=== PATIENT | female | born 2005 | race Caucasian/White ===

== ENCOUNTER 2024-07-07 04:17 | Inpatient (IN) | payer OTHER ==
[2024-07-07] MEDS ORDERED: CARBOPROST TROMETHAMINE 250 MCG/ML 1 ML AMP IM PRN (04:33)
[2024-07-07] MEDS ORDERED: miSOPROStoL 200 MCG TAB PO PRN (04:33)
[2024-07-07] MEDS ORDERED: LIDOCAINE 0.5% (PF) 5 MG/ML (50 ML SDV) SQ PRN (04:33)
[2024-07-07] MEDS ORDERED: TERBUTALINE 1 MG/ML VIAL SQ PRN (04:33)
[2024-07-07] MEDS ORDERED: miSOPROStoL 200 MCG TAB RECTAL PRN (04:33)
[2024-07-07 04:46] VITALS: RESP 16
[2024-07-07] MEDS: LACTATED RINGERS 1,000 ML IV SCH (04:57)
[2024-07-07 05:11] LABS: Basophils % (A) 0 %; Eosinophils # (A) 0.1 k/uL (0-0.7); Eosinophils % (A) 1 %; HCT 32.1 % (34.0-46.0); HGB 10.6 gm/dL (11.4-16.0); Lymphocytes # (A) 1.9 k/uL (1.0-4.8); Lymphocytes % (A) 22 %; MCH 28.7 pg (25.0-35.0); MCHC 33.1 g/dL (31.0-37.0); MCV 86.7 fL (80.0-100.0); Mean Platelet Volume 10.5; Monocytes # (A) 0.5 k/uL (0-1.0); Monocytes % (A) 5 %; Neutrophils # (A) 5.7 k/uL (1.3-7.7); Neutrophils % (A) 69 %; Platelet Count 134 k/uL (150-450); RDW 15.7 % (11.5-15.5); WBC 8.3 k/uL (4.0-11.0)
[2024-07-07] MEDS: OXYTOCIN 30 UNITS/500 ML NS 30 UNIT in SALINE 1 500ML.BAG IV SCH (06:40)
--- NOTE | 2024-07-07 07:58 | P.HPOB ---
History of Present Illness H&P Date: 07/07/24 Chief Complaint: Elective induction Ms. Lowery is a 18 year old at 40 weeks and 1 day gestation with EDC of 07/06/2024 by 8 week US who presents for induction of labor for post-dates gestation. Her has been complicated by a chlamydia infection for which she was treated and test of cure was negative (06/17/24). The fetus is estimated to be in the 54%ile based on a 32 week growth US. work-up: blood type O positive, antibody screen negative, rubella immune VDRL non-reactive, HBsAg negative, HIV negative, HCV Ab non-reactive, gonorrhea negative, 1 hour GTT wnl, GBS negative. Past Medical History Past Medical History: Asthma Additional Past Medical History / Comment(s): vanwillibrants type 2 (bleeding disorder), asthma at childhood History of Any Multi-Drug Resistant Organisms: None Reported Past Surgical History: Adenoidectomy, Ear Surgery, Tonsillectomy Additional Past Surgical History / Comment(s): T&A and tubes in childhood Past Anesthesia/Blood Transfusion Reactions: No Reported Reaction Past Psychological History: No Psychological Hx Reported Smoking Status: Never smoker Past Alcohol Use History: None Reported Past Drug Use History: Marijuana Additional Drug Use History / Comment(s): Stopped a few months ago Medications and Allergies Allergies Allergy/AdvReac Type Severity Reaction Status Date / Time Penicillins AdvReac Unknown Verified 07/02/24 21:39 Exam Vital Signs Temp Pulse Resp BP Pulse Ox 07/07/24 04:30 97.0 F L 95 16 128/73 99 Intake and Output 07/06/24 07/07/24 07/07/24 22:59 06:59 14:59 Other: # Voids 1 Weight 63.503 kg Focused physical exam is performed. This is a healthy-appearing in no apparent distress. Breathing is non-labored. Abdomen is gravid and non-tender. Cervical exam is 3/70/-3. AROM is undertaken with thin meconium noted in the amniotic fluid. Extremities non-tender and non-edematous. heart tones are Category I and tocometer is graphing contractions every 2-4 minutes. Results Result Diagrams: 07/07/24 04:50 Abnormal Lab Results - Last 24 Hours (Table) 07/07/24 Range/Units 04:50 RBC 3.70 L (3.80-5.40) m/uL Hgb 10.6 L (11.4-16.0) gm/dL Hct 32.1 L (34.0-46.0) % RDW 15.7 H (11.5-15.5) % Plt Count 134 L (150-450) k/uL Assessment and Plan Assessment: 18 year at 40 weeks and 1 day presenting for induction of labor for post- dates Plan: Admit, clear liquid diet, pitocin per protocol, epidural prn, continuous EFM and tocometer, anticipate vaginal delivery
[2024-07-07 08:22] LABS: Amphetamine Screen,Urine Not Detected (NotDetected); Barbiturate Screen,Urine Not Detected (NotDetected); Benzodiazepines Screen,Urine Not Detected (NotDetected); Cocaine Screen,Urine Not Detected (NotDetected); Methadone Screen, Urine Not Detected (NotDetected); Opiate Screen,Urine Not Detected (NotDetected); Oxycodone Screen, Urine Not Detected (NotDetected); Phencyclidine Screen,Urine Not Detected (NotDetected); Tricyclic Antidepressant,Urine Not Detected (NotDetected); Urn Cannabinoid Scrn Not Detected (NotDetected)
[2024-07-07] MEDS: NALBUPHINE 10 MG/ML (10 ML MDV) IV PRN (09:16)
[2024-07-07] MEDS: TRANEXAMIC 1,000 MG/100ML-NACL 1,000 MG in EMPTY BAG 1 BAG IV PRN (14:45)
[2024-07-07] MEDS: OXYTOCIN 10 UNIT/ML 1 ML VIAL IM PRN (14:57)
[2024-07-07] MEDS: METHYLERGONOVINE 0.2 MG/ML 1 ML AMP IM PRN (15:01)
[2024-07-07] MEDS ORDERED: LANOLIN CREAM 1 GM TUBE TOPICAL PRN (15:15)
[2024-07-07] MEDS ORDERED: HYDROCORTISONE 2.5% RECTAL CREAM 30 GM TUBE RECTAL PRN (15:15)
[2024-07-07] MEDS ORDERED: diphenhydrAMINE 50 MG/ML 1 ML VIAL IVP PRN ×2 (15:15)
[2024-07-07] MEDS ORDERED: BENZOCAINE/MENTHOL SPRAY 1 GM/SPRAY AEROSOL TOPICAL PRN (15:15)
[2024-07-07] MEDS ORDERED: diphenhydrAMINE 25 MG CAP PO PRN (15:15)
[2024-07-07] MEDS ORDERED: diphenhydrAMINE 50 MG CAP PO PRN (15:15)
[2024-07-07] MEDS ORDERED: SIMETHICONE 80 MG CHEWABLE PO PRN (15:15)
[2024-07-07] MEDS ORDERED: ZOLPIDEM 5 MG TAB PO PRN (15:15)
--- NOTE | 2024-07-07 15:15 | P.PROBDLV ---
Vaginal Delivery Note - . Vaginal Delivery Note: DATE OF SERVICE: 07/07/2024 PROCEDURE: Vacuum Assisted Vaginal Delivery ATTENDING: Dr. Henrietta Andrade MD ESTIMATED BLOOD LOSS: 700 mL FINDINGS: VFI, Apgars 9/9. Weight 7 pounds. PROCEDURE: Ms. Lowery is a 18 year old at 40 weeks and 1 day gestation presenting to labor and delivery for induction of labor. The was thought to be uncomplicated, however the patient today revealed that she does have Von Willebrand's Type 2. Pitocin was titrated per protocol. AROM was undertaken at 751 revealing clear amniotic fluid. The patient was completely dilated at 1440. A gram of TXA was given empirically to manage bleeding given the patient's history of VW Type 2. She pushed effectively with Category II heart tones. The heart rate then dropped to the 60s and the decision was made to use an outlet vacuum to assist in delivery. The vacuum was applied to the scalp ensuring no maternal tissue was underneath the suction cup. A viable female infant was delivered at 1452 without any pop offs. The infant was placed on the maternal abdomen and bulb suctioned. The was noted to be spontaneously crying. Cord was clamped and cut after a 30-second delay. The was handed off to the pediatric team. Placenta was delivered manually aft er an umbilical cord avulsion at 1457. Oxytocin was started to facilitate uterine tone. Given brisk bleeding on fundal massage, IM Methergine was administered. Uterine fundus was found to be firm and below the umbilicus upon fundal massage. Thorough examination of the cervix, vagina, periurethral area, and perineum revealed bilateral periurethral abrasions that were hemostatic and did not require repair. The patient is stable and allowed to begin the bonding process.
[2024-07-07] MEDS: ACETAMINOPHEN TAB 500 MG TAB PO SCH (20:00)
[2024-07-07] MEDS: SENNOSIDES-DOCUSATE SODIUM 1 EACH TAB PO SCH (22:42)
[2024-07-07] MEDS: TRANEXAMIC 1,000 MG/100ML-NACL 1,000 MG in EMPTY BAG 1 BAG IV SCH (23:17)
[2024-07-08] MEDS: IBUPROFEN 800 MG TAB PO SCH (04:23)
[2024-07-08 07:03] LABS: Basophils % (A) 0 %; Eosinophils % (A) 0 %; HGB 9.2 gm/dL (11.4-16.0); Hypochromasia Slight; Lymphocytes # (A) 1.3 k/uL (1.0-4.8); Lymphocytes % (A) 13 %; MCH 28.6 pg (25.0-35.0); MCHC 32.8 g/dL (31.0-37.0); MCV 87.1 fL (80.0-100.0); Mean Platelet Volume 9.7; Monocytes # (A) 0.5 k/uL (0-1.0); Monocytes % (A) 5 %; Neutrophils # (A) 8.1 k/uL (1.3-7.7); Neutrophils % (A) 81 %; Platelet Count 130 k/uL (150-450); RBC 3.21 m/uL (3.80-5.40); RDW 15.7 % (11.5-15.5)
--- NOTE | 2024-07-08 08:28 | P.PNOBGVD ---
Subjective - Subjective Principal diagnosis: s/p vaginal delivery Interval history: The patient is doing well this morning and had no acute events overnight. She has no complaints this morning. She reports minimal lochia, passing flatus, voiding without difficulty, ambulating, and eating/drinking without nausea or vomiting. She is her without difficulty. She denies chest pain, shortness of breathing, fevers, or chills overnight. She denies pain or swelling in the legs. Patient reports: Reports appetite normal, Reports voiding normally, Reports pain well controlled, Reports ambulating normally : doing well, nursing well Objective - Latest Vital Signs Latest vital signs: Vital Signs Temp Pulse Resp BP 07/08/24 00:00 98.6 F 91 16 110/69 07/07/24 20:00 98.0 F 102 H 16 121/71 07/07/24 19:05 102 H 07/07/24 17:05 97.2 F L 90 16 122/62 07/07/24 16:50 86 16 120/77 07/07/24 16:32 79 16 117/79 07/07/24 16:20 97.1 F L 84 16 121/81 07/07/24 16:05 97.7 F 96 16 116/83 07/07/24 15:50 79 16 126/76 07/07/24 15:35 85 16 133/78 07/07/24 15:20 93 16 132/78 07/07/24 15:05 97.0 F L 110 H 16 132/77 Intake and Output 07/07/24 07/08/24 07/08/24 22:59 06:59 14:59 Intake Total 16.667 Output Total 150 Balance -133.333 Intake: Intake, IV Titration 16.667 Amount Oxytocin 30 Units/500 ml 16.667 Ns 30 unit In Saline 1 500ml.bag @ Per Protocol IV .Q0M [facility] Rx#:[id number] Output: Output, Quantitative 150 Blood Loss Other: # Voids 1 2 - Exam Extremities: Present: normal Abdomen: Present: normal appearance, soft Uterus: Present: normal, firm - Labs Labs: Abnormal Lab Results - Last 24 Hours (Table) 07/08/24 Range/Units 06:32 RBC 3.21 L (3.80-5.40) m/uL Hgb 9.2 L (11.4-16.0) gm/dL Hct 28.0 L (34.0-46.0) % RDW 15.7 H (11.5-15.5) % Plt Count 130 L (150-450) k/uL Neutrophils # 8.1 H (1.3-7.7) k/uL Assessment and Plan Assessment: 18 year old now PPD#1 s/p Plan: 1. . Patient meeting all milestones appropriately. 2. Von Willebrand's Type 2. Appreciate Heme recs. Plan for discharge home with TXA PO TID for 1 week 3. Viable female at bedside. Doing well, nursing well. Dispo: anticipate discharge home today after heme consult.
[2024-07-08 09:13] VITALS: BP 117/69; PULSE 66; TEMP 98.2
--- NOTE | 2024-07-08 11:52 | P.CONS ---
History of Present Illness - Reason for Consult Consult date: 07/08/24 History of type II von Willebrand's disease Requesting physician: Henrietta Andrade - Chief Complaint Vaginal delivery of a baby - History of Present Illness Mrs. Lowery is a pleasant 18-year-old female who delivered a healthy baby girl in the last 24 hours. Patient reported a history of type II von Willebrand's disease to Senior Software Test Engineer when she came in for delivery. Patient reports she was diagnosed [facility] [place] when when she was about 4 years old. She reports that she had bad epistaxis as a child. She had tonsils and adenoids out and thinks there was complications postoperative, no other surgeries or porcedures, this is her 1st child. Currently, patient is denying any excessive bleeding, no excessive bleeding is reported by nursing. Review of Systems Focused review of systems is negative except as stated in HPI Past Medical History Past Medical History: Asthma Additional Past Medical History / Comment(s): vanwillibrants type 2 (bleeding disorder), asthma at childhood History of Any Multi-Drug Resistant Organisms: None Reported Past Surgical History: Adenoidectomy, Ear Surgery, Tonsillectomy Additional Past Surgical History / Comment(s): T&A and tubes in childhood Past Anesthesia/Blood Transfusion Reactions: No Reported Reaction Past Psychological History: No Psychological Hx Reported Smoking Status: Never smoker Past Alcohol Use History: None Reported Past Drug Use History: Marijuana Additional Drug Use History / Comment(s): Stopped a few months ago Medications and Allergies Allergies Allergy/AdvReac Type Severity Reaction Status Date / Time Penicillins AdvReac Unknown Verified 07/02/24 21:39 Physical Exam Vitals: Vital Signs Temp Pulse Resp BP 07/08/24 09:12 98.2 F 66 16 117/69 07/08/24 00:00 98.6 F 91 16 110/69 07/07/24 20:00 98.0 F 102 H 16 121/71 07/07/24 19:05 102 H 07/07/24 17:05 97.2 F L 90 16 122/62 07/07/24 16:50 86 16 120/77 07/07/24 16:32 79 16 117/79 07/07/24 16:20 97.1 F L 84 16 121/81 07/07/24 16:05 97.7 F 96 16 116/83 07/07/24 15:50 79 16 126/76 07/07/24 15:35 85 16 133/78 07/07/24 15:20 93 16 132/78 07/07/24 15:05 97.0 F L 110 H 16 132/77 Intake and Output 07/07/24 07/08/24 07/08/24 22:59 06:59 14:59 Intake Total 16.667 Output Total 150 Balance -133.333 Intake: Intake, IV Titration 16.667 Amount Oxytocin 30 Units/500 ml 16.667 Ns 30 unit In Saline 1 500ml.bag @ Per Protocol IV .Q0M [facility] Rx#:[id number] Output: Output, Quantitative 150 Blood Loss Other: # Voids 1 2 1 - Constitutional General appearance: average body habitus, cooperative, no acute distress - EENT Eyes: anicteric sclerae, EOMI ENT: hearing grossly normal - Respiratory Respirations even and unlabored - Cardiovascular Skin warm and dry to touch, well-perfused leg Peripheral Edema: bilateral: None - Integumentary Integumentary: normal - Neurologic Neurologic: CNII-XII intact - Musculoskeletal Musculoskeletal: strength equal bilaterally - Psychiatric Psychiatric: A&O x's 3, appropriate affect, intact judgment & insight Results CBC & Chem 7: 07/08/24 06:32 Labs: Abnormal Lab Results - Last 24 Hours (Table) 07/08/24 Range/Units 06:32 RBC 3.21 L (3.80-5.40) m/uL Hgb 9.2 L (11.4-16.0) gm/dL Hct 28.0 L (34.0-46.0) % RDW 15.7 H (11.5-15.5) % Plt Count 130 L (150-450) k/uL Neutrophils # 8.1 H (1.3-7.7) k/uL Assessment and Plan (1) Von Willebrand disease, type 2, unspecified Current Visit: Yes Status: Chronic Priority: Medium Code(s): D68.029 - VON WILLEBRAND DISEASE, TYPE 2, UNSPECIFIED SNOMED Code(s): 599785014 Plan: Von Willebrand's disease, type II -Reading through the delivery note patient was given 1 g of TXA empirically to manage bleeding just prior to delivery. Plans for TXA 3 times daily, agree with the same -Factor VIII levels were drawn inpatient. Will look for results. -Dr. Dugan discussed with patient and at the bedside plans for follow- up and factor VIII monitoring for few weeks. They verbalized understanding. -Discussed with nursing. Ok to discharge from Hematology standpoint -Patient will be called with lab draw and appointment dates and times with the group care worker. Unclear how easy it will be to get testing results from [facility] [place] so, plans will be for retesting for von Willebrand's disease. Doctor attests: I performed a history and physical examination of this patient, developed impression and plan of care. Discussed with dictator. I agree with dictators note, documented as a scribe.
--- NOTE | 2024-07-08 15:39 | P.DS ---
Providers Date of admission: 07/07/24 04:17 Expected date of discharge: 07/08/24 Attending physician: Henrietta Andrade MD Consults: 07/07/24 10:14 Consult Physician Routine Consulting Provider: Anthony Bejarano Consult Reason/Comments: Pt has Vonwillebrand Disease Type 2 Do you want consulting provider notified?: Yes Primary care physician: Henrietta Andrade MD Hospital Course: Ms. Lowery is a 18 year old now PPD#1 s/p . Yesterday she did mention that she has Von Willebrand's type 2. She was diagnosed at age 4 after a bad nose bleed. She has seen hematology here who plans to follow up with her outpatient and agrees with plans of TXA PO TID for the next week. She did have high normal EBL at 700 mL that was mostly due to atony and improved with Methergine, Oxytocin, and TXA. Her course has been within normal limits and she denies any heavy bleeding . She is her female without difficulty. She is eating, drinking, ambulating, and voiding without difficulty. We discussed pelvic rest for 6 weeks. She is advised to call the office for any heavy bleeding, fevers, chills, worsening pain, or concerns. Otherwise she will follow up in 6 weeks for appointment. All questions are answered. Assessment: 18 year old PPD#1 s/p Patient Condition at Discharge: Good Plan - Discharge Summary New Discharge Prescriptions: New Acetaminophen Tab [Tylenol] 650 mg PO Q6H PRN #30 tab PRN Reason: Mild Pain (Scale 1 To 3) Docusate [Colace] 100 mg PO BID PRN #60 capsule PRN Reason: Constipation Tranexamic Acid [Lysteda] 650 mg PO TID 7 Days #21 tablet Ibuprofen [Motrin] 600 mg PO Q6HR PRN #30 tab PRN Reason: Mild Pain (Scale 1 To 3) Discharge Medication List Acetaminophen Tab [Tylenol] 650 mg PO Q6H PRN #30 tab 07/08/24 [Rx] Docusate [Colace] 100 mg PO BID PRN #60 capsule 07/08/24 [Rx] Ibuprofen [Motrin] 600 mg PO Q6HR PRN #30 tab 01/21/25 [Rx] Tranexamic Acid [Lysteda] 650 mg PO TID 7 Days #21 tablet 07/08/24 [Rx] Follow up Appointment(s)/Referral(s): Henrietta Andrade MD [Primary Care Provider] - 08/20/24 8:30 am Discharge Disposition: HOME SELF-CARE
== END 2024-07-08 16:13 | disposition home or self-care (01) | DRG 560 ==
LOC: 4FBP 04:17
PROVIDERS: ADMIT Obstetrics & Gynecology; ATTEND Obstetrics & Gynecology
PROC: 4A1HXCZ Monitoring of Products of Conception, Cardiac Rate, External Approach (ICD-10-PCS; principal; 2024-07-07)
PROC: 10907ZC Drainage of Amniotic Fluid, Therapeutic from Products of Conception, Via Natural or Artificial Opening (ICD-10-PCS; principal; 2024-07-07)
PROC: 3E033VJ Introduction of Other Hormone into Peripheral Vein, Percutaneous Approach (ICD-10-PCS; principal; 2024-07-07)
PROC: 10D07Z6 Extraction of Products of Conception, Vacuum, Via Natural or Artificial Opening (ICD-10-PCS; principal; 2024-07-07)
DX: O48.0 Post-term pregnancy (principal); Z37.0 Single live birth; D68.029 Von Willebrand disease, type 2, unspecified; O99.12 Other diseases of the blood and blood-forming organs and certain disorders involving the immune mechanism complicating childbirth; A74.9 Chlamydial infection, unspecified; Z3A.40 40 weeks gestation of pregnancy; O69.89X0 Labor and delivery complicated by other cord complications, not applicable or unspecified; O76 Abnormality in fetal heart rate and rhythm complicating labor and delivery
CPT/HCPCS: 80306; 85025; 85246; 86850; 86900; 86901

== ENCOUNTER 2024-12-24 22:35 | Emergency (ER) | payer OTHER ==
[2024-12-24 22:48] VITALS: RESP 18
--- NOTE | 2024-12-24 23:36 | ED ---
General Adult HPI - General Chief complaint: Skin/Abscess/Foreign Body Stated complaint: bug bite left foot Time Seen by Provider: 12/24/24 22:49 Source: patient Mode of arrival: ambulatory Limitations: no limitations - History of Present Illness Initial comments: 19-year-old female presented chief complaint of bug bite to the left ankle. Patient first noticed it on Sunday, she thought nothing of it it was just tried to keep it relatively clean. However now it appears more painful and swollen. She has no foul discharge from the area. No fever or chills. No red streaking up the leg. - Related Data Previous Rx's Medication Instructions Recorded Acetaminophen Tab [Tylenol] 650 mg PO Q6H PRN #30 tab 07/08/24 Docusate [Colace] 100 mg PO BID PRN #60 capsule 07/08/24 Ibuprofen [Motrin] 600 mg PO Q6HR PRN #30 tab 07/08/24 Tranexamic Acid [Lysteda] 650 mg PO TID 7 Days #21 tablet 07/08/24 Cephalexin [Keflex] 500 mg PO Q6HR 7 Days #28 cap 12/24/24 Sulfamethox-Tmp 800-160Mg [Bactrim 1 tab PO Q12HR 7 Days #14 tab 12/24/24 DS 800-160 mg] Allergies Allergy/AdvReac Type Severity Reaction Status Date / Time Penicillins AdvReac Unknown Verified 12/24/24 22:48 Review of Systems ROS Statement: Those systems with pertinent positive or pertinent negative responses have been documented in the HPI. ROS Other: All systems not noted in ROS Statement are negative. Past Medical History Past Medical History: Asthma Additional Past Medical History / Comment(s): vanwillibrants type 2 (bleeding disorder), asthma at childhood History of Any Multi-Drug Resistant Organisms: None Reported Past Surgical History: Adenoidectomy, Ear Surgery, Tonsillectomy Additional Past Surgical History / Comment(s): T&A and tubes in childhood Past Anesthesia/Blood Transfusion Reactions: No Reported Reaction Past Psychological History: No Psychological Hx Reported Smoking Status: Never smoker Past Alcohol Use History: None Reported Past Drug Use History: Marijuana General Exam Limitations: no limitations General appearance: alert, in no apparent distress Head exam: Present: atraumatic, normocephalic, normal inspection Eye exam: Present: normal appearance, EOMI Neck exam: Present: normal inspection. Absent: meningismus Respiratory exam: Absent: respiratory distress Cardiovascular Exam: Present: regular rate Neurological exam: Present: alert, oriented X3 Psychiatric exam: Present: normal affect, normal mood Skin exam: Present: other (There is a circular bug bite with a 1 cm diameter, mild erythema with a centralized puncture.) Course Vital Signs 12/24/24 12/24/24 22:44 23:59 Temperature 98.2 F 98.1 F Pulse Rate 80 81 Respiratory 18 18 Rate Blood Pressure 123/75 121/75 O2 Sat by Pulse 99 99 Oximetry Medical Decision Making - Medical Decision Making Was pt. sent in by a medical professional or institution (, [facility], PRACTICE BILLING ASSOCIATE, urgent care, hospital, or half-way...) When possible be specific @ -No Did you speak to anyone other than the patient for history (EMS, parent, family, police, friend...)? What history was obtained from this source @ -No Did you review nursing and triage notes (agree or disagree)? Why? @ -I reviewed and agree with nursing and triage notes Were old charts reviewed (outside hosp., previous admission, EMS record, old EKG, old radiological studies, urgent care reports/EKG's, half-way records)? Report findings @ -No old charts were reviewed Differential Diagnosis (chest pain, altered mental status, abdominal pain women, abdominal pain men, vaginal bleeding, weakness, fever, dyspnea, syncope, headache, dizziness, GI bleed, back pain, seizure, CVA, palpatations, mental health, musculoskeletal)? @ -Differential includes cellulitis, abscess, allergic reaction, not an all- inclusive list EKG interpreted by me (3pts min.). @ -As above X-rays interpreted by me (1pt min.). @ -None done CT interpreted by me (1pt min.). @ -None done U/S interpreted by me (1pt. min.). @ -None done What testing was considered but not performed or refused? (CT, X-rays, U/S, labs)? Why? @ -None What meds were considered but not given or refused? Why? @ -None Did you discuss the management of the patient with other professionals (professionals i.e. , [facility], PRACTICE BILLING ASSOCIATE, lab, RT, psych nurse, social media executive, area development consultant, teacher, bsa/aml compliance officer, embedded case manager)? Give summary @ -No Was smoking cessation discussed for >3mins.? @ -No Was critical care preformed (if so, how long)? @ -No Were there social determinants of health that impacted care today? How? (Homelessness, low income, unemployed, alcoholism, drug addiction, transportation, low edu. Level, literacy, decrease access to med. care, fci, rehab)? @ -No Was there de-escalation of care discussed even if they declined (Discuss DNR or withdrawal of care, Hospice)? DNR status @ -No What co-morbidities impacted this encounter? (DM, HTN, Smoking, COPD, CAD, Cancer, CVA, ARF, Chemo, Hep., AIDS, mental health diagnosis, sleep apnea, morbid obesity)? @ -None Was patient admitted / discharged? Hospital course, mention meds given and route, prescriptions, significant lab abnormalities, going to OR and other pertinent info. @ -19-year-old female presented chief complaint of bug bite to the left ankle. Appears to be worsening. She reports it is grown in size and is more tender. On examination there is a circular bug bite 1 cm in diameter mildly erythematous. No evidence of any pus or drainage. Patient will be started on antibiotics. Educated on today's findings and supportive management. Follow-up with PCP. Report back to ER with any new or worsening symptoms. Discussed return parameters and answered all questions. Patient conveyed verbal understanding and agreed to the plan. I discussed this case in detail with my attending Dr. Monaco Undiagnosed new problem with uncertain prognosis? @ -No Drug Therapy requiring intensive monitoring for toxicity (Heparin, Nitro, Insulin, Cardizem)? @ -No Were any procedures done? @ -No Diagnosis/symptom? @ -Cellulitis Acute, or Chronic, or Acute on Chronic? @ -Acute Uncomplicated (without systemic symptoms) or Complicated (systemic symptoms)? @ -Uncomplicated Side effects of treatment? @ -No Exacerbation, Progression, or Severe Exacerbation? @ -No Poses a threat to life or bodily function? How? (Chest pain, USA, ME, pneumonia, PE, COPD, DKA, ARF, appy, cholecystitis, CVA, Diverticulitis, Homicidal, Suicidal, threat to staff... and all critical care pts) @ -Unlikely Disposition Clinical Impression: Cellulitis Disposition: HOME SELF-CARE Condition: Good Instructions (If sedation given, give patient instructions): Cellulitis (ED) Additional Instructions: Follow-up with PCP. Report back to ER with any new or worsening symptoms. Prescriptions: Sulfamethox-Tmp 800-160Mg [Bactrim DS 800-160 mg] 1 tab PO Q12HR 7 Days #14 tab Cephalexin [Keflex] 500 mg PO Q6HR 7 Days #28 cap Is patient prescribed a controlled substance at d/c from ED?: No Referrals: Jemal Akins MD [Primary Care Provider] - 1-2 days Time of Disposition: 23:35
[2024-12-24] MEDS: CEPHALEXIN 500 MG CAP PO STA (23:57)
[2024-12-24] MEDS: SULFAMETHOX-TMP 800-160MG 1 EACH TAB PO STA (23:57)
[2024-12-25 00:01] VITALS: BP 121/75; PULSE 81; TEMP 98.1
== END 2024-12-25 00:01 | disposition home or self-care (01) ==
LOC: EC 22:35
DX: L03.116 Cellulitis of left lower limb (principal); Z88.0 Allergy status to penicillin
CPT/HCPCS: 99282